=== PATIENT | female | born 1990 | race Two or more races ===

== ENCOUNTER 2024-06-10 14:26 | Outpatient (CLI) | payer MEDICAID, SELFPAY ==
[2024-06-10 14:28] VITALS: BP 126/68; PULSE 85; RESP 20; RESP 99; TEMP 36.4
[2024-06-10 14:35] VITALS: BP 126/68; PULSE 91; PULSE 92; O2SAT 99
[2024-06-10 14:40] VITALS: PULSE 84; O2SAT 99
[2024-06-10 14:45] VITALS: PULSE 77; O2SAT 100
[2024-06-10 14:50] VITALS: PULSE 74; O2SAT 100
[2024-06-10 14:55] VITALS: PULSE 75; O2SAT 100
== END 2024-06-10 15:05 | disposition home or self-care (01) ==
LOC: S4S1 14:27 → S4SX 14:28
PROVIDERS: Referring Provider Advanced Practice Midwife; Visit Provider Advanced Practice Midwife
DX: O36.8130 Decreased fetal movements, third trimester, not applicable or unspecified (principal); Z3A.36 36 weeks gestation of pregnancy
CPT/HCPCS: 59025

== ENCOUNTER 2024-06-17 18:32 | Outpatient (CLI) | payer MEDICAID, SELFPAY ==
[2024-06-17] VITALS (11 sets, daily range): BP systolic 131–143; BP diastolic 72–80; PULSE 72–86; RESP 16–100; TEMP 37.1; O2SAT 99–100; BMI 39.0
[2024-06-17 19:54] LABS: Basophils % (Auto) 0 % (0-2.5); Eosinophils # (Auto) 0.1 Thou/mm3 (0.0-0.5); Eosinophils % (Auto) 1 % (0-10); Hematocrit 35.1 % (36.0-46.0); Hemoglobin 12.2 g/dL (12.0-16.0); Immature Granulocytes % (Auto) 1 % (0-0); Immature Granulocytes Auto 0.04 Thou/mm3 (0.00-0.00); Lymphocytes # (Auto) 1.9 Thou/mm3 (1.0-4.8); Lymphocytes % (Auto) 23 % (10-50); Mean Corpuscular HGB Conc 34.8 g/dl (31.0-37.0); Mean Corpuscular Hemoglobin 27.9 pg (25.0-35.0); Mean Corpuscular Volume 80 fL (80-100); Monocytes # (Auto) 0.4 Thou/mm3 (0.0-0.8); Monocytes % (Auto) 5 % (0-12); Neutrophils # (Auto) 5.9 Thou/mm3 (1.8-7.7); Neutrophils % (Auto) 71 % (37-80); Nucleated Red Blood Cell % 0 /100 WBC (0); Platelet Count 136 Thou/mm3 (140-440); RDW Standard Deviation 38.8 fL (36.4-46.3); Red Blood Count 4.37 Miln/mm3 (4.00-5.20); White Blood Count 8.3 Thou/mm3 (3.6-11.0)
[2024-06-17 20:20] LABS: Alanine Aminotransferase 14 U/L (10-49); Albumin, Serum 3.7 gm/dL (3.5-5.0); Albumin/Globulin Ratio 1.5 (1.2-2.2); Alkaline Phosphatase 146 U/L (46-116); Anion Gap 11 (7-16); Aspartate Amino Transferase 26 U/L (0-34); BUN/Creatinine Ratio 14 Ratio (12-20); Bilirubin,Total 0.3 mg/dL (0.3-1.2); Blood Urea Nitrogen 10 mg/dL (9-23); Calcium (Corrected) 10.2 mg/dL (8.5-10.1); Carbon Dioxide 20.1 mMol/L (20.0-31.0); Chloride 109 mMol/L (98-107); Creatinine (Component) 0.7 mg/dL (0.6-1.3); Estimated Creatinine Clearance 113.7 mL/min (>60); Globulin 2.4 gm/dL (2.3-3.5); Glucose 116 mg/dL (74-106); Osmolality,Calculated 279 (275-295); Potassium 3.2 mMol/L (3.4-5.1); Sodium 140 mMol/L (136-145); Total Protein 6.1 gm/dL (5.7-8.2); eGFR > 60 See Note
[2024-06-17 23:03] LABS: Creatinine,Random Urine 47 mg/dL (30-125); Protein Total, Random Urine 9 mg/dL (1-14)
--- NOTE | 2024-06-18 00:48 | ESPR_ITS ---
Documentation for date of: 06/18/24 OB Labor Progress Note Assessment and Plan Comments: Triage visit for PIH workup Visit performed with [place]-speaking RN Patient is a 33yo with SIUP at 37+wk presenting to L&D from clinic for PIH workup. CNM requested NST and PIH labs be performed. Patient had mild range bp noted in clinic and this was first occasion in . Patient feels her bp was elevated because she was nervous since she had been having decreased movement today and she was concerned about that. She notes no painful/regular ctx, no vaginal bleeding, no lof. Current : This has otherwise been uncomplicated, she has had regular OB care with her CNM Previous pregnancies: history of 2 prior at term ROS negative other than what was described above. Vitals wnl, afebrile General: well developed, well nourished, no acute distress, conversant Cardiac: normal heart rate Lungs: breathing without distress Abdomen: soft, gravid, non-tender, no rebound or guarding Extremities: no BLE edema NST: Reactive, +accels, no decels, mod marianna Ruth: no ctx pattern Labs: Hgb 12.2 Plt 136 serum creat 0.7 AST/ALT wnl urine prot:creat 0.19 Assessment: Patient is a 33yo with SIUP at 37+wk with likely diagnosis of GHTN (based on mild range bp in clinic and in triage >6hr later). She has NO evidence of pre-eclampsia at this time based on vitals and labs. Out of 12 bp's, 9 were normotensive and 3 mild range (140's systolic). Only mildly abnormal lab value is plt 136, but she started plt 168 so this does not represent a significant change. She has benign exam. Reassuring status. Plan: -Discussed findings and suspected dx of GHTN. Offered option for IOL today given she technically rules in for GHTN and she is term. We discussed that based on different studies, recommendation for timing of delivery can be 37wk vs 38wk. She is reluctant to proceed with IOL today given that she feels her mild range bp in office was related to anxiety rather than real bp reading. Discussed possibility that GHTN can advance to pre-eclampsia so it is extremely important to have close follow up. It is reasonable option for her to have close follow up rather than IOL today since her bp's overall were more normotensive than mild range. I instructed her to make an appt or walk in to clinic in two days (06/19) for repeat bp's. She voiced her understanding and agreed to do so. -We discussed return precautions at length, especially for persistent headache, vision changes and RUQ pain Jayne Lauren MD
== END 2024-06-18 00:43 | disposition home or self-care (01) ==
LOC: S4S1 18:35 → S4SX 18:36
PROVIDERS: PCP Family Medicine; Referring Provider Obstetrics & Gynecology; Visit Provider Obstetrics & Gynecology
DX: O36.8130 Decreased fetal movements, third trimester, not applicable or unspecified (principal); O26.893 Other specified pregnancy related conditions, third trimester; R03.0 Elevated blood-pressure reading, without diagnosis of hypertension; Z3A.37 37 weeks gestation of pregnancy
CPT/HCPCS: 36415; 59025; 80053; 82570; 84156; 85025

== ENCOUNTER 2024-06-21 02:50 | Inpatient (IN) | payer MEDICAID, SELFPAY ==
[2024-06-20] VITALS (35 sets, daily range): BP systolic 109–151; BP diastolic 59–92; PULSE 68–88; RESP 16–18; TEMP 36.3–36.8; O2SAT 97–100; BMI 40.2
[2024-06-20 11:25] LABS: Collection Type, Urine Clean Catch; WBC,Urine 0 /hpf (0-5)
[2024-06-20 11:32] LABS: Basophils % (Auto) 0 % (0-2.5); Eosinophils % (Auto) 1 % (0-10); Hematocrit 37.4 % (36.0-46.0); Hemoglobin 12.8 g/dL (12.0-16.0); Immature Granulocytes % (Auto) 1 % (0-0); Immature Granulocytes Auto 0.07 Thou/mm3 (0.00-0.00); Lymphocytes # (Auto) 1.5 Thou/mm3 (1.0-4.8); Lymphocytes % (Auto) 19 % (10-50); Mean Corpuscular HGB Conc 34.2 g/dl (31.0-37.0); Mean Corpuscular Hemoglobin 27.8 pg (25.0-35.0); Mean Corpuscular Volume 81 fL (80-100); Monocytes # (Auto) 0.4 Thou/mm3 (0.0-0.8); Monocytes % (Auto) 5 % (0-12); Neutrophils # (Auto) 5.7 Thou/mm3 (1.8-7.7); Neutrophils % (Auto) 74 % (37-80); Nucleated Red Blood Cell % 0 /100 WBC (0); Platelet Count 155 Thou/mm3 (140-440); RDW Standard Deviation 39.7 fL (36.4-46.3); Red Blood Count 4.61 Miln/mm3 (4.00-5.20); White Blood Count 7.7 Thou/mm3 (3.6-11.0)
[2024-06-20 11:47] LABS: Bacteria,Urine Rare; Bilirubin,Urine Negative (Negative); Blood,Urine Negative (Negative); Clarity,Urine Clear (Clear/Hazy); Glucose, Urine Negative (Negative); Ketones,Urine Negative (Negative); Leukocyte Esterase,Urine Negative (Negative); Nitrite,Urine Negative (Negative); Protein,Urine Negative (Neg - Trace); RBC,Urine < 1 /hpf (0-3); Specific Gravity,Urine 1.004 (1.001-1.035); Squamous Epithelial Cell,Urine 1 /hpf (0-5); Urobilinogen,Urine Negative mg/dL (0.0-1.0)
[2024-06-20 11:48] LABS: Fibrinogen 498 mg/dL (175-375)
[2024-06-20 11:56] LABS: Alanine Aminotransferase 16 U/L (10-49); Albumin, Serum 4.2 gm/dL (3.5-5.0); Albumin/Globulin Ratio 1.7 (1.2-2.2); Alkaline Phosphatase 154 U/L (46-116); Anion Gap 11 (7-16); Aspartate Amino Transferase 25 U/L (0-34); BUN/Creatinine Ratio 13 Ratio (12-20); Bilirubin,Total 0.3 mg/dL (0.3-1.2); Blood Urea Nitrogen 8 mg/dL (9-23); Calcium 8.9 mg/dL (8.3-10.6); Calcium (Corrected) 8.9 mg/dL (8.5-10.1); Carbon Dioxide 18.3 mMol/L (20.0-31.0); Chloride 110 mMol/L (98-107); Creatinine (Component) 0.6 mg/dL (0.6-1.3); Estimated Creatinine Clearance 134.9 mL/min (>60); Globulin 2.5 gm/dL (2.3-3.5); Glucose 99 mg/dL (74-106); Osmolality,Calculated 275 (275-295); Potassium 3.7 mMol/L (3.4-5.1); Sodium 139 mMol/L (136-145); Total Protein 6.7 gm/dL (5.7-8.2); Uric Acid 4.9 mg/dL (3.1-7.8); eGFR > 60 See Note
[2024-06-20] MEDS: LABETALOL 100 MG TABLET 200 MG PO ×2 (12:09→21:37)
[2024-06-20 12:16] LABS: Color,Urine Lt-Yellow (Lt Yel-Yel)
--- NOTE | 2024-06-20 12:28 | XR_ITS ---
Examination: Complete OB ultrasound greater than 14 weeks Date and time of exam: June 20, 2024 1326 hrs. Indications: Labor induction, unknown weight and unknown presentation Findings: Viable intrauterine single fetus with single amniotic sac presentation transverse, head maternal right Cardiac motion 147 BPM Placenta posterior grade 2 Umbilical cord insertion seen Amniotic fluid index 2.7 cm Cervix 4.5 cm Ovaries obscured by bowel gas. Composite estimated gestational age based on BPD, head circumference, abdominal circumference, femur length is 38 weeks 0 days Estimated weight 3274.8 g. Survey of intracranial anatomy, spinal anatomy, abdominal anatomy, four-chamber heart performed with no abnormalities identified. Impression: Viable intrauterine gestation transverse presentation Amniotic fluid index 2.7 cm Estimated gestational age 38 weeks 0 days Estimated weight 3274.8 g.
[2024-06-20 13:13] LABS: Syphilis Nonreactive (Nonreactive)
--- NOTE | 2024-06-20 15:46 | PD.LDHP ---
Documentation for date of: 06/20/24 OB Labor/Induct. HPI History of Present Adequate Care: Yes Narrative: 33 y/o @38w2d, was sent from clinic for elevated BP. Patient of note had elevated BP last visit , no h/o BP prior in . denied any headache, chest tightness, blurred vision or SOB. Labs Narrative: nipt WNL GTT negative: 3 hour 1 value abnormal US Anatomy wnl GBS -ve Meds Home Medications and Allergies Home Medications ?Medication ?Instructions ?Recorded ?Confirmed ?Type Vitamin * 1 tab PO QDAY #0 tabs 05/31/16 06/17/24 History Allergies Allergy/AdvReac Type Severity Reaction Status Date / Time No Known Allergies Allergy Unknown Verified 06/17/24 18:56 OB Exam Physical Exam Vital signs: Pulse BP 77 126/71 06/20/24 15:25 06/20/24 15:25 Constitutional Constitutional: no acute distress Routine HEENT Exam Head: Present normocephalic and atraumatic Eye: Present EOMI and PERRL ENT: Present mucous membranes moist Routine Neck Exam Neck: Present supple and trachea midline Routine Cardiovascular Exam Cardiovascular: Present RRR Routine Abdominal Exam Abdominal: Present soft and normoactive bowel sounds Routine Extremities Exam Extremities: Present full ROM Routine Skin Exam Skin: Present intact, dry and warm Routine Neurological Exam Neurological: Present alert, oriented X3 and CN II-XII intact Routine Psychiatric Exam Psychiatric: Present normal affect and normal thought process OB Results Labs 06/20/24 10:50 06/20/24 10:50 Labs: Short CBC 06/20/24 Range/Units 10:50 WBC 7.7 (3.6-11.0) Thou/mm3 Hgb 12.8 (12.0-16.0) g/dL Hct 37.4 (36.0-46.0) % Plt Count 155 (140-440) Thou/mm3 BMP 06/20/24 10:50 Sodium 139 Potassium 3.7 D Chloride 110 H Carbon Dioxide 18.3 L BUN 8 L Creatinine 0.6 Glucose 99 Calcium 8.9 Liver Function 06/20/24 Range/Units 10:50 Total Bilirubin 0.3 (0.3-1.2) mg/dL AST 25 (0-34) U/L ALT 16 (10-49) U/L Alkaline Phosphatase 154 H (46-116) U/L Albumin 4.2 D (3.5-5.0) gm/dL Urine 06/20/24 Range/Units 10:50 Urine Color Lt-Yellow (Lt Yel-Yel) Urine Clarity Clear (Clear/Hazy) Urine pH 7.0 (5.0-7.0) Ur Specific [place] 1.004 (1.001-1.035) Urine Protein Negative (Neg - Trace) Urine Glucose (UA) Negative (Negative) Impressions Impression: 33 y/o @38w2d, admitted for IOL for GHTN Preclampsia labs wnl US Transverse lie, declined version OB Assessment & Plan Additional Plan Additional Plan Comment: pltcs for non cephalic presentatiom risks of Csection expa,lined DVT Prophylaxis Antibiotic prophylaxis
[2024-06-20] MEDS: RINGERS LACTATED 500 ML 500 ML 999 ML IV (19:10)
[2024-06-20] MEDS: CITRIC ACID/SODIUM CITR 15 ML UDC (BICITRA) 30 ML PO (19:32)
[2024-06-20] MEDS: ceFAZolin/D5W 2 GM IV 2 GM/100 ML BAG IV (19:35)
[2024-06-20] MEDS: FAMOTIDINE INJ 10 MG/ML VIAL 2 ML 20 MG IV (19:36)
[2024-06-20] MEDS: DIPHENOXYLATE/ATROP SULF 1 TAB PO (21:26)
[2024-06-21] VITALS (7 sets, daily range): BP systolic 96–119; BP diastolic 63–87; PULSE 76–93; RESP 16–20; TEMP 36.7–37.6; O2SAT 98–99
[2024-06-21 03:12] LABS: Basophils % (Auto) 0 % (0-2.5); Eosinophils % (Auto) 0 % (0-10); Hematocrit 31.8 % (36.0-46.0); Hemoglobin 10.7 g/dL (12.0-16.0); Immature Granulocytes % (Auto) 0 % (0-0); Immature Granulocytes Auto 0.05 Thou/mm3 (0.00-0.00); Lymphocytes # (Auto) 1.6 Thou/mm3 (1.0-4.8); Lymphocytes % (Auto) 12 % (10-50); Mean Corpuscular HGB Conc 33.6 g/dl (31.0-37.0); Mean Corpuscular Hemoglobin 27.6 pg (25.0-35.0); Mean Corpuscular Volume 82 fL (80-100); Monocytes # (Auto) 0.6 Thou/mm3 (0.0-0.8); Monocytes % (Auto) 5 % (0-12); Neutrophils # (Auto) 11.3 Thou/mm3 (1.8-7.7); Neutrophils % (Auto) 83 % (37-80); Nucleated Red Blood Cell % 0 /100 WBC (0); Platelet Count 120 Thou/mm3 (140-440); RDW Standard Deviation 41.2 fL (36.4-46.3); Red Blood Count 3.87 Miln/mm3 (4.00-5.20); White Blood Count 13.5 Thou/mm3 (3.6-11.0)
[2024-06-21] MEDS: OXYTOCIN in NS 20 units 20 UNIT/1,000 ML BAG 125 UNIT IV (04:46)
[2024-06-21] MEDS: ONDANSETRON INJ 2 MG/ML INJ 2 ML 4 MG IV (04:46)
[2024-06-21] MEDS: LABETALOL 100 MG TABLET 200 MG PO ×2 (09:34→21:22)
[2024-06-21] MEDS: KETOROLAC INJ 30 MG/ML VIAL IVP (09:42)
--- NOTE | 2024-06-21 15:31 | OBDSUM_ITS ---
Data (Haley) Data Para: 2 Delivery Data (Haley) Labor Data ROM Date: 06/20/24 ROM Time: 20:21 Rupture Type: AROM Amniotic Fluid: Clear Delivery Data Labor Onset Stage 1 Date: 06/20/24 Labor Onset Stage 1 Time: 11:21 Labor Onset Stage 2 Date: 06/20/24 Labor Onset Stage 2 Time: 14:57 Delivery Date: 06/20/24 Delivery Time: 20:23 Gestational age (weeks): 38 Gestational age (days): 2 Placenta Delivery Date: 06/20/24 Placenta Delivery Time: 20:23 Delivered by: Vasiliy Moise Delivery nurse: Jona Correa Other staff at delivery: Nursery Nurse Other staff at delivery: Jasmine Torres Delivery Method Delivery: Delivery Type: Primary Anesthesia Type Primary Anesthesia: Spinal Placenta Placenta Delivery: Manual EBL Estimated blood loss (ml): 300 Umbilical Cord Nuchal Cord: x1 Data (Haley) [place] Data Infant Gender: Male Weight Grams: 3145 1 Minute Total: 9 5 Minute Total: 9
--- NOTE | 2024-06-21 15:34 | ESOP_ITS ---
Operative Note - RECYCLABLE MATERIALS COLLECTOR Procedure Date of procedure: 06/20/24 Procedure Performed: Primary low transverse Csectiom Indication: transverse lie declined version Pre-Op diagnosis: same Post-Op diagnosis: same Anesthesia type: Spinal Procedure description: Informed consent was obtained and the patient was taken to the operating room.? Identity was confirmed by double identifiers and she was placed on the operating table.The abdomen and perineum were prepped in the usual sterile fashion and a Santana catheter was placed to continuous drainage.? Sterile drapes were applied.??A Pfannenstiel skin incision was made with a scalpel and carried to the subcutaneous fat up to the rectus fascia.? The rectus fascia was incised on either side of the midline and the incisions were extended bilaterally.? The fascia was gently dissected off the ventral surface of the rectus muscle both superiorly and inferiorly. Carefully a peritioneal window created hysterotomy incision made and extended bluntly with finger. Rupture of membranes revealed clear fluid. The baby was found in cephalic position delivered via vertex. The umbilical cord , was doubly clamped, divided and the was handed over to the waiting team.? placenta delivered by controlled cord traction . The interior of the uterus was now thorougly cleaned of all blood and debris and membranes.? 2 cavities and the uterus verified the? hysterotomy was closed using 0 vicryl suture in double layers. Once the repair was completed the hysterotomy was inspected, was noted to be adequately hemostatic . Muscle oozing stopped by bovie. The rectus fascia was repaired using Vicry 0 in a running fashion.? The subcutaneous layer was now, approximated with 3-0 vicryl in double layers.? All bleeding points were cauterized using the Bovie.?The skin was closed using 4-0 Monocryl in a subcuticular fashion.? The skin was cleaned and a sterile dressing was applied. The patient was now undraped, the abdomen and back were thoroughly cleaned and she was now transferred to the recovery room in a stable Estimated blood loss (ml): 300 Surgical staff Operation Date: 06/20/24 20:15 Case Staff MEDIA MARKETING DIRECTOR: Ra Morley RNpropeller layout worker: Veronica Bustillo Diagnosis Problem List Completed Was Problem List Reviewed/Reconciled?: Yes
--- NOTE | 2024-06-21 15:46 | ESPR_ITS ---
Subjective Subjective Interval history: Patient is doing well, denied any fever ,has some nausea after the delivery , however , did not vomit. Nausea subsided Exam Vital Signs Temp Pulse Resp BP Pulse Ox O2 Del Method 98.1 F 76 18 96/63 98 Room Air 06/21/24 12:49 06/21/24 12:49 06/21/24 12:49 06/21/24 12:49 06/21/24 12:49 06/21/24 12:49 Constitutional Constitutional: no acute distress Routine HEENT Exam Head: Present normocephalic and atraumatic Eye: Present EOMI and PERRL ENT: Present mucous membranes moist Routine Neck Exam Neck: Present supple and trachea midline Routine Respiratory Exam Respiratory: Present chest non-tender, lungs clear, normal breath sounds and no resp distress Routine Cardiovascular Exam Cardiovascular: Present RRR Routine Abdominal Exam Abdominal: Present soft and normoactive bowel sounds Routine Extremities Exam Extremities: Present full ROM Routine Skin Exam Skin: Present intact, dry and warm Routine Neurological Exam Neurological: Present alert, oriented X3 and CN II-XII intact Routine Psychiatric Exam Psychiatric: Present normal affect and normal thought process Objective Labs 06/21/24 02:54 06/20/24 10:50 Labs: Laboratory Results - last 24 hr 06/21/24 02:54 WBC 13.5 H D RBC 3.87 L Hgb 10.7 L D Hct 31.8 L MCV 82 MCH 27.6 MCHC 33.6 RDW Std Deviation 41.2 Plt Count 120 L D Neut % (Auto) 83 H Lymph % (Auto) 12 [place] % (Auto) 5 Eos % (Auto) 0 Baso % (Auto) 0 Neut # (Auto) 11.3 H Lymph # (Auto) 1.6 [place] # (Auto) 0.6 Eos # (Auto) 0.0 Baso # (Auto) 0.0 Immature Gran # (Auto) 0.05 H Absolute Nucleated RBC 0.00 Immature Gran % 0 Nucleated RBC % 0 Assessment & Plan Assessment Comment Assessment comment: 33 y/po p1, s/p PLTCS for transverse lie, GHTN, POD#1 VSS BP controlled by labetalol 200 BID Preclampsia labs wnl Hb appropriate drop meeting all PO milestone Plan Comment Plan Comment: continue PO care anticipate discharge tomorrow Time Spent With Patient Time: Total time spent is greater than 50% in coordination of care (as documented) at patient's floor/unit and/or counseling patient:
[2024-06-21] MEDS: IBUPROFEN TAB 400 MG TABLET 800 MG PO (19:48)
--- NOTE | 2024-06-21 22:02 | PC.NURSE ---
2029 pt ambulating in hallway with and baby. abdominal splint in place. pt in stable condition RN praised pt.
[2024-06-22 00:40] VITALS: BP 101/62; PULSE 88; RESP 16; TEMP 37; O2SAT 98
[2024-06-22 08:00] VITALS: BP 106/66; PULSE 86; RESP 18; TEMP 36.7; O2SAT 98
[2024-06-22 09:10] VITALS: BP 121/73; PULSE 91
[2024-06-22] MEDS: IBUPROFEN TAB 400 MG TABLET 800 MG PO ×2 (09:10→18:07)
[2024-06-22] MEDS: LABETALOL 100 MG TABLET 200 MG PO (09:10)
--- NOTE | 2024-06-22 09:35 | PD.LDPPPRG ---
Subjective Subjective Interval history: Patient is a 33-year-old -0-2-2 postop day #2 status post primary section for transverse lie. Patient is Upper Sor[place]-speaking only. She is doing well she reports minimal flatus today. Her labs are stable preop hemoglobin 12.8 postop hemoglobin 10.7. Patient is having trouble latching and breast-feeding we will send to bedside. She is reporting minimal flatus and I encouraged ambulation. She is anxious to go home later today if she has breast-feeding situated and is passing flatus. I will round on her later today. Exam Vital Signs Temp Pulse Resp BP Pulse Ox O2 Del Method 98.1 F 91 18 121/73 98 Room Air 06/22/24 08:00 06/22/24 09:10 06/22/24 08:00 06/22/24 09:10 06/22/24 08:00 06/22/24 08:00 Narrative Exam Patient is alert and oriented x 3 in no apparent distress. Her color appears good abdomen is distended slightly incision is clean dry and intact extremities showed no cyanosis clubbing or edema Objective Labs 06/21/24 02:54 06/20/24 10:50 Impressions Impression: Postop day #2 status post primary low-transverse section patient is doing well. She may want to be discharged later today. I am going to encourage ambulation see if patient passes more flatus and reexamine her later this afternoon. Assessment & Plan Problem List (1) delivery indicated due to breech presentation: Status: Acute Time Spent With Patient Time: Total time spent is greater than 50% in coordination of care (as documented) at patient's floor/unit and/or counseling patient:
[2024-06-22 15:22] VITALS: BP 117/72; PULSE 89; RESP 18; TEMP 36.7; O2SAT 98
[2024-06-22 20:10] VITALS: BP 137/80; PULSE 71; RESP 18; TEMP 36.9; O2SAT 99
== END 2024-06-22 20:40 | disposition home or self-care (01) | DRG 540 ==
LOC: S4NX 02:55
PROVIDERS: Advanced Practice Midwife; Admitting Provider Student in an Organized Health Care Education/Training Program; Visit Provider Student in an Organized Health Care Education/Training Program
PROC: (CPT 59514; principal; 2024-06-20 20:00)
DX: O13.4 Gestational [pregnancy-induced] hypertension without significant proteinuria, complicating childbirth (principal); Z3A.38 38 weeks gestation of pregnancy; Z37.0 Single live birth; O69.81X0 Labor and delivery complicated by cord around neck, without compression, not applicable or unspecified; O32.2XX0 Maternal care for transverse and oblique lie, not applicable or unspecified
CPT/HCPCS: 36415; 59409; 76805; 80053; 81001; 84550; 85025; 85384; 86780; 86850; 86900; 86901; 94762; A4649; J0689; J1885; J2274; J2405; J2590; J3490; J7120; A9270; J2270